=== PATIENT | male | born 1980 | race Two or more races ===

== ENCOUNTER 2016-11-13 23:10 | Emergency (ER) | payer OTHER ==
[~2016-11-13] VITALS: Ht 188 cm; Wt 81.8 kg
[2016-11-13 23:11] VITALS: BP 139/93
[2016-11-13] MEDS ORDERED: IBUP-1022 PO (23:58)
[2016-11-14] MEDS ORDERED: NAPROXEN 250 MG TAB PO ONE
--- NOTE | 2016-11-14 08:12 | REP ---
Fifth digit right hand four views : There is no fracture or dislocation. Mineralization and joint spaces are normal. There are no calcifications or foreign bodies. Impression: Negative fifth digit right hand . Signed by Biju Nelson MD 11/14/2016 08:03 A
== END 2016-11-14 00:11 | disposition home or self-care (01) ==
LOC: M ED 23:10
DX: S60.221A Contusion of right hand, initial encounter (principal); S63.696A Other sprain of right little finger, initial encounter; X50.1XXA Overexertion from prolonged static or awkward postures, initial encounter; Y92.9 Unspecified place or not applicable; Y93.9 Activity, unspecified; Y99.1 Military activity; F17.200 Nicotine dependence, unspecified, uncomplicated

== ENCOUNTER → 2017-01-06 | Outpatient (CLI) | payer OTHER ==
[~2017-01-06] MED LIST: CONRAY-43 43% 50ML VIAL (Q9960) As Ordered ONE; IBUP-1022 PO; PROHANCE 279.3MG/ML 15ML VIAL (A9576) As Ordered ONE
--- NOTE | 2017-01-06 09:25 | REP ---
MR arthrography right shoulder: with pre and post intra-articular gadolinium enhanced saline injected imaging: History: Right shoulder pain after a fall 4-5 weeks ago. History of complete labral repair in 2013. No comparison radiographs. Technique: The injection procedure is performed and dictated separately. Pre and post intra-articular gadolinium enhanced saline injected imaging is acquired. Imaging planes include axial, oblique coronal, oblique sagittal and ABER projection images. T1 T2-weighted scans are included with and without fat saturation. MRI findings: Pre-injection MR imaging demonstrate linear tracts in the anterior bony labrum from surgical anchors. There is an area of marrow T2 hyperintensity representing marrow edema in the posterior aspect of the labrum and there is subcortical cyst formation posteriorly in the labrum. There are also linear T2 hyperintense defects in the body of the scapula at the base of the scapular spine. These appear to be a typical vascular grooves. There is an old ununited fracture of the distal clavicle. There is some associated hypertrophy and a pseudoarthrosis here. The acromioclavicular joint shows mild hypertrophy as well. This does not compress the musculotendinous junction of the supraspinatus however. Cortical and medullary bone signal intensity are otherwise normal. There is a small sliver of subacromial subdeltoid bursal fluid. A tiny amount of joint fluid is seen. There is early osteoarthritic spurring at the inferior articular margin of the humeral head. There is some subcortical cyst formation in the superolateral humeral head. There is an osteocartilaginous defect in the humeral head underlying the genu of the biceps tendon. Pre-injection MR images demonstrate evidence of posterior cartilaginous labral tear. There is tendonitis tendinosis change in the supraspinatus tendon. Post injection MR imaging shows good filling and enhancement of the glenohumeral articulation. There is a large loose body in the subcoracoid recess of the joint measuring 1.8 cm in greatest diameter. This appears to represent an osteocartilaginous loose body. No other loose body is appreciated. There is injected enhanced saline undermining the posterior labrum and the anterior inferior labrum consistent with extensive labral tear nondisplaced. There is no visible rotator cuff tear. Biceps tendon appears intact. There is advanced chondromalacia of the glenoid and humeral head. 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 There is an old ununited distal clavicle fracture. Signed by Prateek Mcconnell MD 01/06/2017 11:20 A
--- NOTE | 2017-01-06 17:28 | REP ---
Procedure: Right shoulder arthrogram The procedure was performed under the direct supervision of Dr. Mcconnell. History: Right shoulder pain The benefits and risks including but not limited to pain, infection, bleeding and anaphylaxis were explained to the patient and informed consent was obtained. Technique: The right glenohumeral joint space was localized using fluoroscopic guidance. The skin was prepped and draped in a sterile fashion. 1% lidocaine was used as a local anesthetic. Using fluoroscopic guidance a 22 gauge spinal needle was inserted and advanced into the joint. 0.5 ml of Conray 43 was injected to verify placement. 11 ml of a solution containing 20 ml of sterile saline and 0.15 ml of ProHance was injected into the joint. The needle was removed and the patient was taken to MRI for postprocedural imaging. The the patient tolerated the procedure well and there were no immediate complications. 1 second of fluoro time was utilized for this procedure. Reviewed by APPLE Freeman 01/06/2017 04:43 PSigned by Prateek Mcconnell MD 01/06/2017 05:19 P
== END ==
LOC: M RADPRO 06:47
PROVIDERS: ATTEND Nurse Practitioner Family
DX: M25.511 Pain in right shoulder (principal); M24.111 Other articular cartilage disorders, right shoulder; M24.011 Loose body in right shoulder; M19.011 Primary osteoarthritis, right shoulder; M94.211 Chondromalacia, right shoulder; M65.811 Other synovitis and tenosynovitis, right shoulder
CPT/HCPCS: 23350; 73223; 77002; A9576; Q9960

== ENCOUNTER → 2017-03-21 | Outpatient (REF) | payer OTHER ==
[~2017-03-21] MED LIST changes: -CONRAY-43 43% 50ML VIAL (Q9960) As Ordered ONE; -PROHANCE 279.3MG/ML 15ML VIAL (A9576) As Ordered ONE
== END ==
LOC: M SMT 13:39
PROVIDERS: ATTEND Urology
DX: Z30.9 Encounter for contraceptive management, unspecified (principal)

== ENCOUNTER → 2017-05-13 | Outpatient (REF) | payer OTHER ==
[2017-05-13 10:47] LABS: SEMEN APPEARANCE OPAQUE (OPAQUE)
[2017-05-13 10:48] LABS: IMMMOTILE SPERM CENTRIFUGED ABSENT (ABSENT); IMMOTILE SPERM ABSENT (ABSENT); MOTILE SPERM ABSENT (ABSENT); MOTILE SPERM CENTRIFUGED ABSENT (ABSENT); SEMEN VISCOSITY LIQUID (LIQUID); WBC CONCENTRATION <=1 M/ml (<=1 M/ml)
== END ==
LOC: M SMT 10:03
DX: Z98.52 Vasectomy status (principal)